=== PATIENT | male | born 1955 | race Caucasian/White ===

== ENCOUNTER 2020-12-28 09:11 | Outpatient (CLI) | payer OTHER | END 2020-12-28 09:12 | disposition home or self-care (01) | LOC: LAB 09:11 | PROVIDERS: ATTEND Physician Assistant | DX: C25.9 Malignant neoplasm of pancreas, unspecified (principal) | CPT/HCPCS: 81599 ==

== ENCOUNTER 2022-12-04 11:15 | Emergency (ER) | payer MEDICARE ==
[2022-12-04] MEDS ORDERED: SODIUM CHLORIDE 0.9% 1,000 ML IV STA (11:33)
[2022-12-04] MEDS ORDERED: METOCLOPRAMIDE 10 MG/2 ML VIAL IVP STA (11:43)
--- NOTE | 2022-12-04 11:44 | ED Physician Documentation ---
PD HPI ABD PAIN - Stated complaint Stated Complaint: DIZZINESS,VOMITING - Chief complaint Chief Complaint: Abd Pain - History obtained from History obtained from: Patient - Additional information Additional information: 67-year-old gentleman presents accompanied by his for evaluation of nausea and vomiting. He has a history of HIV on [place] with undetectable viral load and per him normal CD4 counts. 2 years ago was diagnosed with pancreatic cancer and he was never a surgical candidate. He has been on chemo pretty much consistently since that time and is on his third regimen of chemo. He does not know what agents, but he has been on the current regimen every other week for about 7 or 8 months. During that time he never really had problems with significant nausea or vomiting. The only thing different recently as he had his biliary stents replaced about 9 days ago and it was a larger stent made of a different material than his prior stents. He had his last chemo on Thursday, 4 da ys ago and the next day he developed nausea and vomiting. It was not so bad yesterday but worse again today. It is not associated with significant abdominal pain, "just pain from retching." Nor is it associated with fevers. He tried Zofran at home without relief. PD PAST MEDICAL HISTORY - Past Medical History Cardiovascular: None Respiratory: None Neuro: None Endocrine/Autoimmune: None GI: Other : None Psych: None Musculoskeletal: None Derm: None - Present Medications Home Medications: Ambulatory Orders Medication Instructions Recorded Confirmed Diphenoxylate/Atropine [Lomotil] 1 tab PO DAILY PRN 12/25/20 05/01/22 Levothyroxine Sodium [Synthroid] 1 tab PO DAILY 12/25/20 05/01/22 Lidocaine/Hydrocortisone AC 1 applic TOP PRN PRN 12/25/20 05/01/22 [Lidocaine-Hc 2-2% Cream Kit] Naloxone HCl Nasal [Narcan] 1 spray IN ONCE PRN 12/25/20 05/01/22 Ondansetron Odt [Zofran Odt] 2 tab PO DAILY 12/25/20 05/01/22 Tamsulosin HCl [Flomax] 0.4 mg PO DAILY 12/25/20 05/01/22 Zolpidem [Ambien] 1 tab PO DAILY PM PRN 12/25/20 05/01/22 Ascorbic Acid [Vitamin C] 1 tab PO DAILY 05/01/22 05/01/22 Beclomethasone Dipropionate 1 - 2 spray IN Q6HR PRN 05/01/22 05/01/22 [Beconase Aq] Bictegrav/Emtricit/Tenofov Ala 1 tab PO DAILY 05/01/22 05/01/22 [Biktarvy 50-200-25 mg Tablet] DULoxetine [Cymbalta] 1 tab PO DAILY 05/01/22 05/01/22 Diphenoxylate/Atropine [Lomotil] 1 tab PO Q6HR PRN 05/01/22 05/01/22 Ergocalciferol (Vitamin D2) 1 tab PO DAILY 05/01/22 05/01/22 [Vitamin D2] Filgrastim-Sndz [Zarxio] 1 syr SQ DAILY 05/01/22 05/01/22 Hyoscyamine [Levsin] 1 tab SL Q4HR PRN 05/01/22 05/01/22 Levothyroxine Sodium 1 tab PO DAILY 05/01/22 05/01/22 [Levothyroxine] Lidocaine/Prilocain 2.5% Cream 1 applic PRN 05/01/22 [Emla 2.5% Cream] Lipase/Protease/Amylase [Creon Dr 1 - 2 cap PO DAILY 05/01/22 05/01/22 24,000 Unit Capsule] Loperamide [Imodium] 2 cap PO 05/01/22 05/01/22 Methylphenidate [Ritalin] 1 - 3 tab PO BID 05/01/22 05/01/22 Multivitamin 1 tab PO DAILY 05/01/22 05/01/22 Omeprazole Magnesium 1 tab PO DAILY 05/01/22 05/01/22 Opium Tincture 0.6 ml PO TID PRN 05/01/22 05/01/22 Oxycodone HCl [Roxicodone] 5 mg PO Q4HR PRN 05/01/22 05/01/22 Prochlorperazine [Compazine] 2 tab PO Q6HR PRN 05/01/22 05/01/22 traZODone [Desyrel] 1 tab PO QPM 05/01/22 05/01/22 Prochlorperazine Maleate 10 mg PO Q6H PRN #20 tablet 12/04/22 [Compazine] - Allergies Allergies/Adverse Reactions: Allergies Allergy/AdvReac Type Severity Reaction Status Date / Time No Known Drug Allergies Allergy Verified 12/04/22 11:25 - Social History Smoking Status: Former smoker PD ED PE NORMAL - Vitals Vital signs reviewed: Yes - General General: Alert and oriented X 3, No acute distress - Cardiac Cardiac: RRR, No murmur - Respiratory Respiratory: No respiratory distress, Clear bilaterally - Abdomen Abdomen: Normal bowel sounds, Soft, Non tender - Derm Derm: No rash - Neuro Neuro: Alert and oriented X 3, Normal speech Results - Vitals Vitals: Vital Signs - 24 hr 12/04/22 12/04/22 12/04/22 11:20 12:30 13:00 Temperature 36.3 C L 36.5 C Heart Rate 114 H 100 100 Respiratory 22 22 18 Rate Blood Pressure 149/96 H 146/80 H 145/82 H O2 Saturation 99 100 100 12/04/22 12/04/22 13:30 14:00 Temperature 36.5 C Heart Rate 98 99 Respiratory 16 16 Rate Blood Pressure 140/80 H 142/76 H O2 Saturation 94 99 Oxygen O2 Source Room air - Labs Labs: Laboratory Tests 12/04/22 12/04/22 12/04/22 11:45 11:45 12:07 WBC 47.0 H* RBC 3.89 L Hgb 13.2 L Hct 38.1 L MCV 97.9 H MCH 33.9 H MCHC 34.6 RDW 14.1 Plt Count 180 MPV 9.4 Neut # (Auto) Not Reportable Lymph # (Auto) Not Reportable [place] # (Auto) Not Reportable Eos # (Auto) Not Reportable Baso # (Auto) Not Reportable Absolute Nucleated RBC Not Reportable Total Counted 100 Band Neuts % (Manual) 3 Reactive Lymphs % (Man) 1 Abnorm Lymph % (Manual) 0 Nucleated RBC % Not Reportable Neutrophils # (Manual) 44.7 H Lymphocytes # (Manual) 1.4 L Monocytes # (Manual) 0.9 Eosinophils # (Manual) 0.0 Basophils # (Manual) 0.0 Differential Comment MANUAL DIFFERENTIAL PT 12.2 INR 1.1 Sodium 136 Potassium 4.2 Chloride 103 Carbon Dioxide 23 Anion Gap 10.0 BUN 20 Creatinine 1.1 Estimated GFR (MDRD) 67 L Glucose 138 H Calcium 9.2 Total Bilirubin 1.5 H AST 67 H ALT 49 Alkaline Phosphatase 168 H Total Protein 7.3 Albumin 3.9 Globulin 3.4 Albumin/Globulin Ratio 1.1 Lipase 35 PD Medical Decision Making - ED course ED course: 67-year-old gentleman with known metastatic pancreatic cancer undergoing therapy. Records reviewed that were sent from [facility]. He is currently on 5-FU, irinotecan and has not had a change in his therapy in quite some time. Did receive new stents last week. He is afebrile and nontoxic but does look miserable. Work-up here demonstrates a white count of 47,000, it was 6 on the third of this month, but he did take Neulasta yesterday. His bilirubin has risen slightly from 1.7-1.5 and his AST also went up slightly, it was 23 on Thursday. He is dry, his creatinine has gone up from 0.89-1.1, and his BUN from 12 up to 20. I discussed the case by phone with EMMA Valdes at [facility] who recommends a CT to evaluate his stent and blood cultures but not necessarily antibiotics at this juncture. He has had cholangitis in the past. He was feeling achy all over, and was administered 15 mg of Toradol and 0.5 mg of IV Dilaudid. He was feeling much better after the above interventions. CT not showing migration of the stent. He wanted to go home. He remained afebrile. Given the mild lab abnormalities I do think it would be appropriate to trend them and wrote him an outpatient lab requisition, recommended repeat labs be done on Thursday. I did update Georgette, his oncology nurse and they will reach back out to him tomorrow to check on him for 2. Departure - Departure Disposition: Home, Self Care Clinical Impression: Pancreatic cancer metastasized to intra-abdominal lymph node, Chemotherapy induced nausea and vomiting Condition: Stable Record reviewed to determine appropriate education?: Yes Instructions: ED Nausea Vomiting Prescriptions: Prochlorperazine Maleate [Compazine] 10 mg PO Q6H PRN #20 tablet PRN Reason: Nausea / Vomiting Comments: You are seen today for nausea and vomiting in the setting of known metastatic pancreatic cancer with biliary stent in place. As discussed, your white cell count went up to 47,000, it was 6000 on Thursday, but this could be explained by the Neulasta shot you received yesterday. There was a mild elevation in your bilirubin but a CT showing the stent looked okay. He received 2 L of IV fluids and some pain and nausea medicine. I sent a prescription for Compazine to [facility] in [place]. I did discuss the case with Eva and Yocasta at [facility] and they plan to reach out to you tomorrow to see how you are doing. As discussed I also think it would be appropriate to trend your labs in about 2 days and I wrote a lab request for a CBC and a CMP and you should come to the hospital at your convenience on Thursday to have that drawn. I will follow-up on it, but I also will have a copied/faxed to the [facility]. Return sooner if worse, especially if you are develop a fever.
[2022-12-04 11:57] LABS: BASOPHILS % (AUTO) 0.3 %; HCT - HEMATOCRIT 38.1 % (42.0-52.0); HGB - HEMOGLOBIN 13.2 g/dL (14.0-18.0); LYMPHOCYTES % (AUTO) 1.6 %; MEAN CORPUSCULAR HEMOGLOBIN 33.9 pg (27.0-31.0); MEAN CORPUSCULAR HGB CONC 34.6 g/dL (32.0-36.0); MEAN CORPUSCULAR VOLUME 97.9 fL (80.0-94.0); MEAN PLATELET VOLUME 9.4 fL (7.4-11.4); NEUTROPHILS % (AUTO) 91.2 %; PLT - PLATELET COUNT 180 10^3/uL (130-450); RED BLOOD COUNT 3.89 10^6/uL (4.70-6.10); RED CELL DISTRIBUTION WIDTH 14.1 % (12.0-15.0)
[2022-12-04 12:03] LABS: INR 1.1 (0.8-1.2); PT - PROTHROMBIN TIME 12.2 secs (9.9-12.6)
[2022-12-04 12:06] LABS: ABNORMAL LYMPHS % (MANUAL) 0 %
[2022-12-04 12:15] LABS: BAND NEUTROPHILS % (MANUAL) 3 %; LYMPHOCYTES # (MANUAL) 1.4 10^3/uL (1.5-3.5); LYMPHOCYTES % (MANUAL) 2 %; MONOCYTES # (MANUAL) 0.9 10^3/uL (0.0-1.0); NEUTROPHILS # (MANUAL) 44.7 10^3/uL (1.5-6.6); REACTIVE LYMPHS % (MANUAL) 1 %
[2022-12-04 12:16] LABS: DIFFERENTIAL COMMENT MANUAL DIFFERENTIAL
[2022-12-04 12:25] LABS: ALBUMIN 3.9 g/dL (3.2-5.5); ALBUMIN/GLOBULIN RATIO 1.1 (1.0-2.2); BILIRUBIN,TOTAL 1.5 mg/dL (0.2-1.0); CALCIUM 9.2 mg/dL (8.5-10.3); CREATININE 1.1 mg/dL (0.6-1.2); POTASSIUM 4.2 mmol/L (3.5-5.0); TOTAL PROTEIN 7.3 g/dL (6.7-8.2)
[2022-12-04] MEDS ORDERED: KETOROLAC 15 MG/ML VIAL IVP STA (12:34)
[2022-12-04] MEDS ORDERED: HYDROmorphone 0.5 MG/0.5 ML SYRINGE IVP STA (12:38)
[2022-12-04] MEDS ORDERED: LACTATED RINGERS 1,000 ML IV STA (12:41)
--- OUTSIDE RECORDS SUMMARY | 2022-12-04 12:45 | EXTERNAL MEDICAL SUMMARY RPT | Continuity of Care Document ---
Author Name Unknown Address [address] [place] [address] Phone Organization [facility] Address [address] [place] [address] Phone Care Team Providers Care Finishing Operator Name Role Phone Unavailable Unavailable Unavailable Sandeep Dobson Unavailable Unavailable Medications date description facility 2022-10-07 00:00 Ondansetron [facility] 2022-10-07 00:00 Pegfilgrastim [facility] 2022-10-07 00:00 Morphine [facility]abs test date author facility value unit interpretation Result panel 1 (unknown) (no date) (unknown) (unknown) (no value) (units unknown) (unknown) (unknown) (no date) (unknown) (unknown) 10/07/22 (units unknown) (unknown) (unknown) (no date) (unknown) (unknown) 66 yo male pre sents today for hemorrhoids bleeding. (units unknown) (unknown) (unknown) (no date) (unknown) (unknown) Age/Sex: 66 / M Date of Service: (units unknown) (unknown) (unknown) (no date) (unknown) (unknown) Allergies (units unknown) (unknown) (unknown) (no date) (unknown) (unknown) [place] [address] (units unknown) (unknown) (unknown) (no date) (unknown) (unknown) Anesthesia (units unknown) (unknown) (unknown) (no date) (unknown) (unknown) Attending Dr: Sandeep Dobson D.O. (units unknown) (unknown) (unknown) (no date) (unknown) (unknown) Broken femur (-1965) (units unknown) (unknown) (unknown) (no date) (unknown) (unknown) Brother Deceas ed Murder (units unknown) (unknown) (unknown) (no date) (unknown) (unknown) : Acct:[id number] (units unknown) (unknown) (unknown) (no date) (unknown) (unknown) Dept at . (units unknown) (unknown) (unknown) (no date) (unknown) (unknown) Documented By: Sandeep Dobson D.O. 10/07/22 1000 (units unknown) (unknown) (unknown) (no date) (unknown) (unknown) Draft (units unknown) (unknown) (unknown) (no date) (unknown) (unknown) Dyspepsia (units unknown) (unknown) (unknown) (no date) (unknown) (unknown) Family History (units unknown) (unknown) (unknown) (no date) (unknown) (unknown) Family Practic e Office Visit (units unknown) (unknown) (unknown) (no date) (unknown) (unknown) Father Can er (units unknown) (unknown) (unknown) (no date) (unknown) (unknown) [facility] (units unknown) (unknown) (unknown) (no date) (unknown) (unknown) HIV antibody p ositive (-1991) (units unknown) (unknown) (unknown) (no date) (unknown) (unknown) HTN (hypertension) ( units unknown) (unknown) (unknown) (no date) (unknown) (unknown) Hyperlipidemia (unit s unknown) (unknown) (unknown) (no date) (unknown) (unknown) Hypothyroid (-1998) (units unknown) (unknown) (unknown) (no date) (unknown) (unknown) Intake Note: (units unknown) (unknown) (unknown) (no date) (unknown) (unknown) Intake perform ed by: Tonya Agudelo (units unknown) (unknown) (unknown) (no date) (unknown) (unknown) Intake (units unknown) (unknown) (unknown) (no date) (unknown) (unknown) Intake- Clincial Sta ff (units unknown) (unknown) (unknown) (no date) (unknown) (unknown) Loc: [facility] (units unknown) (unknown) (unknown) (no date) (unknown) (unknown) [id number] (units unknown) (unknown) (unknown) (no date) (unknown) (unknown) Mass of pancreas (un its unknown) (unknown) (unknown) (no date) (unknown) (unknown) Medical Histor y (units unknown) (unknown) (unknown) (no date) (unknown) (unknown) Mother d Alzheimer's disease (units unknown) (unknown) (unknown) (no date) (unknown) (unknown) No Known Drug Allergies Allergy (Verified 03/21/22 08:07) (units unknown) (unknown) (unknown) (no date) (unknown) (unknown) PFSH (units unknown) (unknown) (unknown) (no date) (unknown) (unknown) Pancreatic cancer (u nits unknown) (unknown) (unknown) (no date) (unknown) (unknown) Patient: Horacio Arceo MR#: (units unknown) (unknown) (unknown) (no date) (unknown) (unknown) Prediabetes (units unknown) (unknown) (unknown) (no date) (unknown) (unknown) Reason For Visit (un its unknown) (unknown) (unknown) (no date) (unknown) (unknown) Signed By: (units unknown) (unknown) (unknown) (no date) (unknown) (unknown) Smoking Status : Former smoker (units unknown) (unknown) (unknown) (no date) (unknown) (unknown) Social History (unit s unknown) (unknown) (unknown) (no date) (unknown) (unknown) Surgical Histo ry (units unknown) (unknown) (unknown) (no date) (unknown) (unknown) This note may have been all or partially generated using voice recognition (units unknown) (unknown) (unknown) (no date) (unknown) (unknown) Tobacco + Subs tance Use (units unknown) (unknown) (unknown) (no date) (unknown) (unknown) Tobacco Status (unit s unknown) (unknown) (unknown) (no date) (unknown) (unknown) Tobacco: How m any years used: 50 (units unknown) (unknown) (unknown) (no date) (unknown) (unknown) Vision disorder (uni ts unknown) (unknown) (unknown) (no date) (unknown) (unknown) Visit Reasons: Hemorrhoids bleeding (units unknown) (unknown) (unknown) (no date) (unknown) (unknown) Well adult exam (uni ts unknown) (unknown) (unknown) (no date) (unknown) (unknown) alcohol intake : current (units unknown) (unknown) (unknown) (no date) (unknown) (unknown) have occurred. If there are any questions, please contact the Medical Records (units unknown) (unknown) (unknown) (no date) (unknown) (unknown) household memb ers: spouse (units unknown) (unknown) (unknown) (no date) (unknown) (unknown) marital status : (units unknown) (unknown) (unknown) (no date) (unknown) (unknown) may occur. Occ asional wrong-word or 'sound-alike' substitutions may have (units unknown) (unknown) (unknown) (no date) (unknown) (unknown) occupational s tatus: previously employed (units unknown) (unknown) (unknown) (no date) (unknown) (unknown) occurred due t o the inherent limitations of voice recognition software. Please (units unknown) (unknown) (unknown) (no date) (unknown) (unknown) read the note carefully and recognize, using context, where these substitutions (units unknown) (unknown) (unknown) (no date) (unknown) (unknown) software. Alth ough every effort is made to edit content, sales receptionist errors (units unknown) (unknown) (unknown) (no date) (unknown) (unknown) substance use type: does not use (units unknown) (unknown) Result panel 2 (unknown) (no date) (unknown) (unknown) (no value) (units unknown) (unknown) (unknown) (no date) (unknown) (unknown) (Biktarvy) 1 t ab PO DAILY 05/23/19 [History Confirmed 10/07/22] (units unknown) (unknown) (unknown) (no date) (unknown) (unknown) .Route .COMPLE X 10/07/21 [History Confirmed 03/21/22] (units unknown) (unknown) (unknown) (no date) (unknown) (unknown) 10/07/22 (units unknown) (unknown) (unknown) (no date) (unknown) (unknown) 10/07/22] (units unknown) (unknown) (unknown) (no date) (unknown) (unknown) 10:29 (units unknown) (unknown) (unknown) (no date) (unknown) (unknown) 66 yo male pre sents today for hemorrhoids bleeding intermediately x 3/4 weeks. (units unknown) (unknown) (unknown) (no date) (unknown) (unknown) Age/Sex: 66 / M Date of Service: (units unknown) (unknown) (unknown) (no date) (unknown) (unknown) Allergies (units unknown) (unknown) (unknown) (no date) (unknown) (unknown) [place] [address] (units unknown) (unknown) (unknown) (no date) (unknown) (unknown) Anesthesia (units unknown) (unknown) (unknown) (no date) (unknown) (unknown) Attending Dr: Sandeep Dobson D.O. (units unknown) (unknown) (unknown) (no date) (unknown) (unknown) BMI 25.6 (units unknown) (unknown) (unknown) (no date) (unknown) (unknown) BP 128/78 (units unknown) (unknown) (unknown) (no date) (unknown) (unknown) Blood Pressure Location Lt brachial (units unknown) (unknown) (unknown) (no date) (unknown) (unknown) Broken femur (-1965) (units unknown) (unknown) (unknown) (no date) (unknown) (unknown) Brother Deces[place] ed Murder (units unknown) (unknown) (unknown) (no date) (unknown) (unknown) Confirmed 10/07/22] (units unknown) (unknown) (unknown) (no date) (unknown) (unknown) DAILY 08/30/21 [History Confirmed 10/07/22] (units unknown) (unknown) (unknown) (no date) (unknown) (unknown) : 8 Acct:[id number] (units unknown) (unknown) (unknown) (no date) (unknown) (unknown) Dept at . (units unknown) (unknown) (unknown) (no date) (unknown) (unknown) Documented By: Sandeep Dobson D.O. 10/07/22 1000 (units unknown) (unknown) (unknown) (no date) (unknown) (unknown) Draft (units unknown) (unknown) (unknown) (no date) (unknown) (unknown) Dyspepsia (units unknown) (unknown) (unknown) (no date) (unknown) (unknown) Family History (units unknown) (unknown) (unknown) (no date) (unknown) (unknown) Family Practic e Office Visit (units unknown) (unknown) (unknown) (no date) (unknown) (unknown) Father Can er (units unknown) (unknown) (unknown) (no date) (unknown) (unknown) [facility] (units unknown) (unknown) (unknown) (no date) (unknown) (unknown) HIV antibody p ositive (-1991) (units unknown) (unknown) (unknown) (no date) (unknown) (unknown) HTN (hypertension) ( units unknown) (unknown) (unknown) (no date) (unknown) (unknown) Height 5 ft 4 in (un its unknown) (unknown) (unknown) (no date) (unknown) (unknown) Hyperlipidemia (unit s unknown) (unknown) (unknown) (no date) (unknown) (unknown) Hypothyroid (-1998) (units unknown) (unknown) (unknown) (no date) (unknown) (unknown) Intake Note: (units unknown) (unknown) (unknown) (no date) (unknown) (unknown) Intake perform ed by: Tonya Agudelo (units unknown) (unknown) (unknown) (no date) (unknown) (unknown) Intake (units unknown) (unknown) (unknown) (no date) (unknown) (unknown) Intake- Clincial Sta ff (units unknown) (unknown) (unknown) (no date) (unknown) (unknown) Loc: [facility] (units unknown) (unknown) (unknown) (no date) (unknown) (unknown) [id number] (units unknown) (unknown) (unknown) (no date) (unknown) (unknown) Mass of pancreas (un its unknown) (unknown) (unknown) (no date) (unknown) (unknown) Medical Histor y (units unknown) (unknown) (unknown) (no date) (unknown) (unknown) Medications (units unknown) (unknown) (unknown) (no date) (unknown) (unknown) Mother d Alzheimer's disease (units unknown) (unknown) (unknown) (no date) (unknown) (unknown) No Known Drug Allergies Allergy (Verified 10/07/22 10:24) (units unknown) (unknown) (unknown) (no date) (unknown) (unknown) Oxygen Deliver y Method room air (units unknown) (unknown) (unknown) (no date) (unknown) (unknown) PFSH (units unknown) (unknown) (unknown) (no date) (unknown) (unknown) Pancreatic cancer (u nits unknown) (unknown) (unknown) (no date) (unknown) (unknown) Patient: Horacio Arceo MR#: (units unknown) (unknown) (unknown) (no date) (unknown) (unknown) Position Sitting (un its unknown) (unknown) (unknown) (no date) (unknown) (unknown) Prediabetes (units unknown) (unknown) (unknown) (no date) (unknown) (unknown) Pt would like to know if it is his cancer or actual hemorrhoids, colonoscopy (units unknown) (unknown) (unknown) (no date) (unknown) (unknown) Pulse 78 (units unknown) (unknown) (unknown) (no date) (unknown) (unknown) Pulse Oximetry (%) 9 8 (units unknown) (unknown) (unknown) (no date) (unknown) (unknown) Pulse Source Monitor (units unknown) (unknown) (unknown) (no date) (unknown) (unknown) Reason For Visit (un its unknown) (unknown) (unknown) (no date) (unknown) (unknown) Rx Instruction s .Route .COMPLEX 10/07/21 [History Confirmed 10/07/22] (units unknown) (unknown) (unknown) (no date) (unknown) (unknown) Signed By: (units unknown) (unknown) (unknown) (no date) (unknown) (unknown) Smoking Status : Former smoker (units unknown) (unknown) (unknown) (no date) (unknown) (unknown) Social History (unit s unknown) (unknown) (unknown) (no date) (unknown) (unknown) Surgical Histo ry (units unknown) (unknown) (unknown) (no date) (unknown) (unknown) This note may have been all or partially generated using voice recognition (units unknown) (unknown) (unknown) (no date) (unknown) (unknown) Tobacco + Subs tance Use (units unknown) (unknown) (unknown) (no date) (unknown) (unknown) Tobacco Status (unit s unknown) (unknown) (unknown) (no date) (unknown) (unknown) Tobacco: How m any years used: 50 (units unknown) (unknown) (unknown) (no date) (unknown) (unknown) Vision disorder (uni ts unknown) (unknown) (unknown) (no date) (unknown) (unknown) Visit Reasons: Hemorrhoids bleeding (units unknown) (unknown) (unknown) (no date) (unknown) (unknown) Vitals (units unknown) (unknown) (unknown) (no date) (unknown) (unknown) Weight 149 lb 8 oz ( units unknown) (unknown) (unknown) (no date) (unknown) (unknown) Well adult exam (uni ts unknown) (unknown) (unknown) (no date) (unknown) (unknown) [History Confi rmed 10/07/22] (units unknown) (unknown) (unknown) (no date) (unknown) (unknown) alcohol intake : current (units unknown) (unknown) (unknown) (no date) (unknown) (unknown) bictegravir 50 mg-emtricitabine 200 mg-tenofovir alafenam 25 mg tablet (units unknown) (unknown) (unknown) (no date) (unknown) (unknown) cholecalcifero l (vitamin D3) PO 10/07/22 [History Confirmed 10/07/22] (units unknown) (unknown) (unknown) (no date) (unknown) (unknown) dexamethasone 4 mg tablet 4 mg PO 10/07/22 [History Confirmed 10/07/22] (units unknown) (unknown) (unknown) (no date) (unknown) (unknown) have occurred. If there are any questions, please contact the Medical Records (units unknown) (unknown) (unknown) (no date) (unknown) (unknown) household memb ers: spouse (units unknown) (unknown) (unknown) (no date) (unknown) (unknown) hyoscyamine wu lfate 0.125 mg sublingual tablet 0.125 mg sublingual 10/07/22 (units unknown) (unknown) (unknown) (no date) (unknown) (unknown) last year they found hemorrhoids. (units unknown) (unknown) (unknown) (no date) (unknown) (unknown) levothyroxine 137 mcg capsule 137 mcg PO DAILY 05/23/19 [History Confirmed (units unknown) (unknown) (unknown) (no date) (unknown) (unknown) lipase 3,000-p rotease 9,500-amylase 15,000 unit capsule, delayed rel (Creon) See (units unknown) (unknown) (unknown) (no date) (unknown) (unknown) loperamide 2 m g capsule 2 mg PO 10/07/22 [History Confirmed 10/07/22] (units unknown) (unknown) (unknown) (no date) (unknown) (unknown) marital status : (units unknown) (unknown) (unknown) (no date) (unknown) (unknown) may occur. Occ asional wrong-word or 'sound-alike' substitutions may have (units unknown) (unknown) (unknown) (no date) (unknown) (unknown) methylphenidat e HCl 5 mg tablet 5 mg PO DAILY 08/30/21 [History Confirmed (units unknown) (unknown) (unknown) (no date) (unknown) (unknown) morphine 15 mg immediate release tablet 15 mg PO 10/07/22 [History Confirmed (units unknown) (unknown) (unknown) (no date) (unknown) (unknown) multivitamin combination no.56 PO 10/07/22 [History Confirmed 10/07/22] (units unknown) (unknown) (unknown) (no date) (unknown) (unknown) occupational s tatus: previously employed (units unknown) (unknown) (unknown) (no date) (unknown) (unknown) occurred due t o the inherent limitations of voice recognition software. Please (units unknown) (unknown) (unknown) (no date) (unknown) (unknown) omeprazole 20 mg capsule,delayed release 20 mg PO DAILY 05/23/19 [History (units unknown) (unknown) (unknown) (no date) (unknown) (unknown) ondansetron HC l 8 mg tablet 8 mg PO 10/07/22 [History Confirmed 10/07/22] (units unknown) (unknown) (unknown) (no date) (unknown) (unknown) opium tincture 10 mg/mL (morphine) oral syringe (FOR ORAL USE ONLY) 10 mg PO (units unknown) (unknown) (unknown) (no date) (unknown) (unknown) paclitaxel protein-bound 100 mg intravenous suspension See Rx Instructions (units unknown) (unknown) (unknown) (no date) (unknown) (unknown) pegfilgrastim 6 mg/0.6 mL subcutaneous syringe (Neulasta) 6 mg SUBCUT 10/07/22 (units unknown) (unknown) (unknown) (no date) (unknown) (unknown) read the note carefully and recognize, using context, where these substitutions (units unknown) (unknown) (unknown) (no date) (unknown) (unknown) software. Alth ough every effort is made to edit content, sales receptionist errors (units unknown) (unknown) (unknown) (no date) (unknown) (unknown) substance use type: does not use (units unknown) (unknown) (unknown) (no date) (unknown) (unknown) tamsulosin 0.4 mg capsule 0.4 mg PO DAILY 08/30/21 [History Confirmed 10/07/22] (units unknown) (unknown) (unknown) (no date) (unknown) (unknown) vitamin A-vit C-vit E-zinc-Cu [Vision-Dexter Preserve] PO 10/07/22 [History (units unknown) (unknown) (unknown) (no date) (unknown) (unknown) zolpidem 5 mg tablet 5 mg PO BEDTIME PRN sleep #30 tabs 11/14/20 [Rx Confirmed (units unknown) (unknown) Result panel 3 (unknown) (no date) (unknown) (unknown) (no value) (units unknown) (unknown) (unknown) (no date) (unknown) (unknown) (1) Internal hemorrhoids: (units unknown) (unknown) (unknown) (no date) (unknown) (unknown) (Biktarvy) 1 t ab PO DAILY 05/23/19 [History Confirmed 10/07/22] (units unknown) (unknown) (unknown) (no date) (unknown) (unknown) .Route .COMPLE X 10/07/21 [History Confirmed 03/21/22] (units unknown) (unknown) (unknown) (no date) (unknown) (unknown) 10/07/22 1120 (units unknown) (unknown) (unknown) (no date) (unknown) (unknown) 10/07/22 (units unknown) (unknown) (unknown) (no date) (unknown) (unknown) 10/07/22] (units unknown) (unknown) (unknown) (no date) (unknown) (unknown) 10:29 (units unknown) (unknown) (unknown) (no date) (unknown) (unknown) 66 yo male pre sents today for hemorrhoids bleeding intermediately x 3/4 weeks. (units unknown) (unknown) (unknown) (no date) (unknown) (unknown) 66-year-old ma le with a history of pancreatic cancer currently with treatment (units unknown) (unknown) (unknown) (no date) (unknown) (unknown) Abdomen-soft nontender, no HSM, no palpable masses rebound or guarding (units unknown) (unknown) (unknown) (no date) (unknown) (unknown) Age/Sex: 66 / M Date of Service: (units unknown) (unknown) (unknown) (no date) (unknown) (unknown) Allergies (units unknown) (unknown) (unknown) (no date) (unknown) (unknown) [place] [address] (units unknown) (unknown) (unknown) (no date) (unknown) (unknown) Anesthesia (units unknown) (unknown) (unknown) (no date) (unknown) (unknown) Assessment + Plan (u nits unknown) (unknown) (unknown) (no date) (unknown) (unknown) Assessment and Plan: (units unknown) (unknown) (unknown) (no date) (unknown) (unknown) Attending Dr: Sandeep Dobson D.O. (units unknown) (unknown) (unknown) (no date) (unknown) (unknown) BMI 25.6 (units unknown) (unknown) (unknown) (no date) (unknown) (unknown) BP 128/78 (units unknown) (unknown) (unknown) (no date) (unknown) (unknown) Blood Pressure Location Lt brachial (units unknown) (unknown) (unknown) (no date) (unknown) (unknown) Broken femur (-1965) (units unknown) (unknown) (unknown) (no date) (unknown) (unknown) Brother Deceas ed Murder (units unknown) (unknown) (unknown) (no date) (unknown) (unknown) Chief Complaint (uni ts unknown) (unknown) (unknown) (no date) (unknown) (unknown) Chief Complain t: Follow-up internal hemorrhoids (units unknown) (unknown) (unknown) (no date) (unknown) (unknown) Confirmed 10/07/22] (units unknown) (unknown) (unknown) (no date) (unknown) (unknown) DAILY 08/30/21 [History Confirmed 10/07/22] (units unknown) (unknown) (unknown) (no date) (unknown) (unknown) : 8 Acct:[id number] (units unknown) (unknown) (unknown) (no date) (unknown) (unknown) Dept at . (units unknown) (unknown) (unknown) (no date) (unknown) (unknown) Details: (units unknown) (unknown) (unknown) (no date) (unknown) (unknown) Documented By: Sandeep Dobson D.O. 10/07/22 1000 (units unknown) (unknown) (unknown) (no date) (unknown) (unknown) Dyspepsia (units unknown) (unknown) (unknown) (no date) (unknown) (unknown) Exam Narrative (unit s unknown) (unknown) (unknown) (no date) (unknown) (unknown) Exam Narrative: (uni ts unknown) (unknown) (unknown) (no date) (unknown) (unknown) Exam (units unknown) (unknown) (unknown) (no date) (unknown) (unknown) Family History (units unknown) (unknown) (unknown) (no date) (unknown) (unknown) Family Practic e Office Visit (units unknown) (unknown) (unknown) (no date) (unknown) (unknown) Father Canc er (units unknown) (unknown) (unknown) (no date) (unknown) (unknown) [facility] (units unknown) (unknown) (unknown) (no date) (unknown) (unknown) General physic al examination, physical examination (units unknown) (unknown) (unknown) (no date) (unknown) (unknown) HIV antibody p ositive (-1991) (units unknown) (unknown) (unknown) (no date) (unknown) (unknown) HPI (units unknown) (unknown) (unknown) (no date) (unknown) (unknown) HTN (hypertension) ( units unknown) (unknown) (unknown) (no date) (unknown) (unknown) Head-normoceph alic atraumatic, , (units unknown) (unknown) (unknown) (no date) (unknown) (unknown) Height 5 ft 4 in (un its unknown) (unknown) (unknown) (no date) (unknown) (unknown) Hyperlipidemia (unit s unknown) (unknown) (unknown) (no date) (unknown) (unknown) Hypothyroid () (units unknown) (unknown) (unknown) (no date) (unknown) (unknown) Intake Note: (units unknown) (unknown) (unknown) (no date) (unknown) (unknown) Intake perform ed by: Tonya Agudelo (units unknown) (unknown) (unknown) (no date) (unknown) (unknown) Intake (units unknown) (unknown) (unknown) (no date) (unknown) (unknown) Intake- Clincial Sta ff (units unknown) (unknown) (unknown) (no date) (unknown) (unknown) Internal hemorrhoids (units unknown) (unknown) (unknown) (no date) (unknown) (unknown) Loc: [facility] (units unknown) (unknown) (unknown) (no date) (unknown) (unknown) [id number] (units unknown) (unknown) (unknown) (no date) (unknown) (unknown) Mass of pancreas (un its unknown) (unknown) (unknown) (no date) (unknown) (unknown) Medical Histor y (units unknown) (unknown) (unknown) (no date) (unknown) (unknown) Medications (units unknown) (unknown) (unknown) (no date) (unknown) (unknown) Middle-aged ap pearing adult with above complaints, contributed to history and (units unknown) (unknown) (unknown) (no date) (unknown) (unknown) Mother d Alzheimer's disease (units unknown) (unknown) (unknown) (no date) (unknown) (unknown) Neck-supple no thyromegaly, JVD or lymphadenopathy (units unknown) (unknown) (unknown) (no date) (unknown) (unknown) No Known Drug Allergies Allergy (Verified 10/07/22 10:24) (units unknown) (unknown) (unknown) (no date) (unknown) (unknown) Orders: (units unknown) (unknown) (unknown) (no date) (unknown) (unknown) Oxygen Deliver y Method room air (units unknown) (unknown) (unknown) (no date) (unknown) (unknown) PFSH (units unknown) (unknown) (unknown) (no date) (unknown) (unknown) Pancreatic cancer (u nits unknown) (unknown) (unknown) (no date) (unknown) (unknown) Patient: Horacio Arceo MR#: (units unknown) (unknown) (unknown) (no date) (unknown) (unknown) Position Sitting (un its unknown) (unknown) (unknown) (no date) (unknown) (unknown) Prediabetes (units unknown) (unknown) (unknown) (no date) (unknown) (unknown) Pt would like to know if it is his cancer or actual hemorrhoids, colonoscopy (units unknown) (unknown) (unknown) (no date) (unknown) (unknown) Pulse 78 (units unknown) (unknown) (unknown) (no date) (unknown) (unknown) Pulse Oximetry (%) 9 8 (units unknown) (unknown) (unknown) (no date) (unknown) (unknown) Pulse Source Monitor (units unknown) (unknown) (unknown) (no date) (unknown) (unknown) ROS Narrative (units unknown) (unknown) (unknown) (no date) (unknown) (unknown) ROS Narrative: (unit s unknown) (unknown) (unknown) (no date) (unknown) (unknown) ROS per H[facility] [place] notes no vomiting or nausea has had variable bleeding (units unknown) (unknown) (unknown) (no date) (unknown) (unknown) ROS (units unknown) (unknown) (unknown) (no date) (unknown) (unknown) Reason For Visit (un its unknown) (unknown) (unknown) (no date) (unknown) (unknown) Referral Gastroenterology K64.8 - Other hemorrhoids (units unknown) (unknown) (unknown) (no date) (unknown) (unknown) Referrals (units unknown) (unknown) (unknown) (no date) (unknown) (unknown) Rx Instruction s .Route .COMPLEX 10/07/21 [History Confirmed 10/07/22] (units unknown) (unknown) (unknown) (no date) (unknown) (unknown) Signed By: <Electronically signed by Sandeep Dobson D.O.> (units unknown) (unknown) (unknown) (no date) (unknown) (unknown) Signed (units unknown) (unknown) (unknown) (no date) (unknown) (unknown) Smoking Status : Former smoker (units unknown) (unknown) (unknown) (no date) (unknown) (unknown) Social History (unit s unknown) (unknown) (unknown) (no date) (unknown) (unknown) Status: Acute (units unknown) (unknown) (unknown) (no date) (unknown) (unknown) Surgical Histo ry (units unknown) (unknown) (unknown) (no date) (unknown) (unknown) The patient farah s had intermittent bleeding from his internal hemorrhoids well (units unknown) (unknown) (unknown) (no date) (unknown) (unknown) This note may have been all or partially generated using voice recognition (units unknown) (unknown) (unknown) (no date) (unknown) (unknown) Tobacco + Subs tance Use (units unknown) (unknown) (unknown) (no date) (unknown) (unknown) Tobacco Status (unit s unknown) (unknown) (unknown) (no date) (unknown) (unknown) Tobacco: How m any years used: 50 (units unknown) (unknown) (unknown) (no date) (unknown) (unknown) Vision disorder (uni ts unknown) (unknown) (unknown) (no date) (unknown) (unknown) Visit Reasons: Hemorrhoids bleeding (units unknown) (unknown) (unknown) (no date) (unknown) (unknown) Vital signs ar e reported, charted and reviewed with patient (units unknown) (unknown) (unknown) (no date) (unknown) (unknown) Vitals (units unknown) (unknown) (unknown) (no date) (unknown) (unknown) Weight 149 lb 8 oz ( units unknown) (unknown) (unknown) (no date) (unknown) (unknown) Well adult exam (uni ts unknown) (unknown) (unknown) (no date) (unknown) (unknown) [History Confi rmed 10/07/22] (units unknown) (unknown) (unknown) (no date) (unknown) (unknown) alcohol intake : current (units unknown) (unknown) (unknown) (no date) (unknown) (unknown) [facility] your patient would like to follow back up with his (units unknown) (unknown) (unknown) (no date) (unknown) (unknown) bictegravir 50 mg-emtricitabine 200 mg-tenofovir alafenam 25 mg tablet (units unknown) (unknown) (unknown) (no date) (unknown) (unknown) bleeding from his internal hemorrhoids documented on colonoscopy 1 year ago (units unknown) (unknown) (unknown) (no date) (unknown) (unknown) bowel habits a nd impairment issues have worsened. No change in diet no travel (units unknown) (unknown) (unknown) (no date) (unknown) (unknown) cholecalcifero l (vitamin D3) PO 10/07/22 [History Confirmed 10/07/22] (units unknown) (unknown) (unknown) (no date) (unknown) (unknown) dexamethasone 4 mg tablet 4 mg PO 10/07/22 [History Confirmed 10/07/22] (units unknown) (unknown) (unknown) (no date) (unknown) (unknown) documented on a colonoscopy a year ago but over the past couple of weeks with (units unknown) (unknown) (unknown) (no date) (unknown) (unknown) exam (units unknown) (unknown) (unknown) (no date) (unknown) (unknown) from constipat ion and diarrhea intermittently as side effects notes increasing (units unknown) (unknown) (unknown) (no date) (unknown) (unknown) gastroenterolo gist for further evaluation assessment potential banding (units unknown) (unknown) (unknown) (no date) (unknown) (unknown) has produced w orsening bleeding at times has been worrisome for the patient is (units unknown) (unknown) (unknown) (no date) (unknown) (unknown) have occurred. If there are any questions, please contact the Medical Records (units unknown) (unknown) (unknown) (no date) (unknown) (unknown) history has no t been eating out at restaurants slightly (units unknown) (unknown) (unknown) (no date) (unknown) (unknown) household memb ers: spouse (units unknown) (unknown) (unknown) (no date) (unknown) (unknown) hyoscyamine wu lfate 0.125 mg sublingual tablet 0.125 mg sublingual 10/07/22 (units unknown) (unknown) (unknown) (no date) (unknown) (unknown) increasing constipation and diarrhea with his treatment for pancreatic cancer (units unknown) (unknown) (unknown) (no date) (unknown) (unknown) last year they found hemorrhoids. (units unknown) (unknown) (unknown) (no date) (unknown) (unknown) levothyroxine 137 mcg capsule 137 mcg PO DAILY 05/23/19 [History Confirmed (units unknown) (unknown) (unknown) (no date) (unknown) (unknown) lipase 3,000-p rotease 9,500-amylase 15,000 unit capsule, delayed rel ([place]) See (units unknown) (unknown) (unknown) (no date) (unknown) (unknown) loperamide 2 m g capsule 2 mg PO 10/07/22 [History Confirmed 10/07/22] (units unknown) (unknown) (unknown) (no date) (unknown) (unknown) marital status : (units unknown) (unknown) (unknown) (no date) (unknown) (unknown) may occur. Occ asional wrong-word or 'sound-alike' substitutions may have (units unknown) (unknown) (unknown) (no date) (unknown) (unknown) methylphenidat e HCl 5 mg tablet 5 mg PO DAILY 08/30/21 [History Confirmed (units unknown) (unknown) (unknown) (no date) (unknown) (unknown) morphine 15 mg immediate release tablet 15 mg PO 10/07/22 [History Confirmed (units unknown) (unknown) (unknown) (no date) (unknown) (unknown) multivitamin combination no.56 PO 10/07/22 [History Confirmed 10/07/22] (units unknown) (unknown) (unknown) (no date) (unknown) (unknown) not used any [id number] products such as preparation H. No recent (units unknown) (unknown) (unknown) (no date) (unknown) (unknown) occupational s tatus: previously employed (units unknown) (unknown) (unknown) (no date) (unknown) (unknown) occurred due t o the inherent limitations of voice recognition software. Please (units unknown) (unknown) (unknown) (no date) (unknown) (unknown) omeprazole 20 mg capsule,delayed release 20 mg PO DAILY 05/23/19 [History (units unknown) (unknown) (unknown) (no date) (unknown) (unknown) ondansetron HC l 8 mg tablet 8 mg PO 10/07/22 [History Confirmed 10/07/22] (units unknown) (unknown) (unknown) (no date) (unknown) (unknown) opium tincture 10 mg/mL (morphine) oral syringe (FOR ORAL USE ONLY) 10 mg PO (units unknown) (unknown) (unknown) (no date) (unknown) (unknown) paclitaxel protein-bound 100 mg intravenous suspension See Rx Instructions (units unknown) (unknown) (unknown) (no date) (unknown) (unknown) pegfilgrastim 6 mg/0.6 mL subcutaneous syringe (Neulasta) 6 mg SUBCUT 10/07/22 (units unknown) (unknown) (unknown) (no date) (unknown) (unknown) presents with out any nausea vomiting diarrhea or abdominal pain recently has (units unknown) (unknown) (unknown) (no date) (unknown) (unknown) procedures but has noted recently that with his treatment for his cancer his (units unknown) (unknown) (unknown) (no date) (unknown) (unknown) read the note carefully and recognize, using context, where these substitutions (units unknown) (unknown) (unknown) (no date) (unknown) (unknown) rectally over the past couple of weeks a can go a day or 2 without bleeding (units unknown) (unknown) (unknown) (no date) (unknown) (unknown) software. Alth ough every effort is made to edit content, sales receptionist errors (units unknown) (unknown) (unknown) (no date) (unknown) (unknown) substance use type: does not use (units unknown) (unknown) (unknown) (no date) (unknown) (unknown) tamsulosin 0.4 mg capsule 0.4 mg PO DAILY 08/30/21 [History Confirmed 10/07/22] (units unknown) (unknown) (unknown) (no date) (unknown) (unknown) vitamin A-vit C-vit E-zinc-Cu [Vision-Dexter Preserve] PO 10/07/22 [History (units unknown) (unknown) (unknown) (no date) (unknown) (unknown) zolpidem 5 mg tablet 5 mg PO BEDTIME PRN sleep #30 tabs 11/14/20 [Rx Confirmed (units unknown) (unknown) Social History date description facility 2022-10-07 00:00 Ex-smoker (finding) [facility] Vital Signs date measurement value units 2022-10-07 00:00 BMI 25.6 kg/m2 2022-10-07 00:00 BP_diastolic 78 mmHg 2022-10-07 00:00 BP_systolic 128 mmHg 2022-10-07 00:00 heart_rate 78 /min 2022-10-07 00:00 height_metric 162.56 cm 2022-10-07 00:00 height_standard 64 in 2022-10-07 00:00 o2_saturation 98 % 2022-10-07 00:00 weight_metric 67.81 kg 2022-10-07 00:00 weight_standard 149.5 lb
[2022-12-04] MEDS ORDERED: iohexoL-300 100 ML VIAL ONE (13:02)
[2022-12-04] MEDS ORDERED: iohexoL-300 100 ML VIAL IVP ONE (13:24)
--- NOTE | 2022-12-04 14:04 | CT Report ---
PROCEDURE: ABDOMEN/PELVIS W INDICATIONS: IV only, eval biliary stent, known panc ca w mets CONTRAST: 100ml Omnipaque 300 TECHNIQUE: After the administration of intravenous contrast, 5 mm thick sections acquired from the diaphragms to the symphysis. 5 mm thick coronal and sagittal reformats were acquired. For radiation dose reducti on, the following was used: automated exposure control, adjustment of mA and/or kV according to ron ent size. COMPARISON: None FINDINGS: Image quality: Excellent. Lung bases and heart: Unremarkable. Liver: Question subtle posterior segment right lobe liver metastatic lesion measuring approximately 1 .4 cm. Gallbladder and biliary tree: Metallic common duct stent coursing through a pancreatic head mass with mild intrahepatic biliary ductal prominence. Spleen: No splenomegaly. Pancreas: Ill-defined infiltrative pancreatic head mass with associated infiltrative celiac adenopath y encasing the celiac artery and extending around the medial portion of the left adrenal and abutting the inferior vena cava. Adrenals: No adrenal nodule. Kidneys and ureters: No hydronephrosis. There is a posterior middle pole exophytic medially directed left renal cyst measuring 3.4 cm that has a Hounsfield measurement of 56.4. Consider hemorrhagic cyst versus solid lesion. Bowel and peritoneum: No bowel distension. No pathologic free fluid. Sigmoid diverticulosis. There is diffuse colonic wall thickening throughout suggesting diffuse colitis. Consider possible infectious colitis such as C. difficile. Lymph nodes: No central or retroperitoneal adenopathy. There are peripancreatic lymph nodes which may potentially represent metastatic lesions or may potentially be reactive in nature. Vessels: No infrarenal aortic aneurysm. Infiltrative mass encases the celiac and also the proximal SM A posterior to the origin of the portal vein. There is a suggestion of significant focal narrowing of the SMA by tumor. Reference image 23/3. PELVIS Reproductive organs: Unremarkable. Bladder: No abnormal wall thickening, accounting for underdistension. Pelvic lymph nodes: No pelvic adenopathy by size criteria. Bones: No aggressive osseous abnormality. Other: No significant ventral or inguinal hernia. IMPRESSION: 1. Ill-defined infiltrative pancreatic head mass with associated infiltrative adenopathy encasing the celiac as well as the proximal SMA. 2. The encasement of the SMA results in a possible severe focal stenosis, which potentially may be sy mptomatic. 3. Metallic biliary stent in place with mild biliary prominence. 4. Diffuse colonic wall thickening. Consider infectious colitis such as C. difficile colitis. Ischemi c colitis is less likely. Reviewed by: Felipe Meek MD on 12/04/2022 2:02 PM PDT Approved by: Felipe Meek MD on 12/04/2022 2:02 PM PDT Station ID: [id number]
[2022-12-04 14:10] VITALS: BP 142/76
[2022-12-04] MEDS ORDERED: PROCHLORPERAZINE 10 MG/2 ML VIAL IVP STA (14:18)
--- NOTE | 2022-12-06 16:38 | ED Physician Documentation ---
ED Addendum - Addendum Addendum: 12/06/22 16:38 Labs done today and reviewed and d/w pt by phone. He is feeling better, still w nausea/fatigue, but not vomiting or fevers. BCX x 2 NGTD Improved WBC, improved liver enz.
== END 2022-12-04 14:31 | disposition home or self-care (01) ==
LOC: ED 11:15
DX: R11.2 Nausea with vomiting, unspecified (principal); T45.1X5A Adverse effect of antineoplastic and immunosuppressive drugs, initial encounter; R52 Pain, unspecified; C25.9 Malignant neoplasm of pancreas, unspecified; C77.2 Secondary and unspecified malignant neoplasm of intra-abdominal lymph nodes; Z79.899 Other long term (current) drug therapy; B20 Human immunodeficiency virus [HIV] disease; Z87.891 Personal history of nicotine dependence
CPT/HCPCS: 36415; 74177; 80053; 83690; 85025; 85610; 87040; 96374; 96375; 99284; 99285; J1170; J2765; J7120; Q9967

== ENCOUNTER 2022-12-06 09:46 | Outpatient (CLI) | payer MEDICARE ==
[2022-12-06 10:11] LABS: BASOPHILS % (AUTO) 0.1 %; HGB - HEMOGLOBIN 11.4 g/dL (14.0-18.0)
[2022-12-06 10:17] LABS: EOSINOPHILS % (AUTO) 0.3 %; HCT - HEMATOCRIT 33.6 % (42.0-52.0); LYMPHOCYTES % (AUTO) 3.8 %; MEAN CORPUSCULAR HEMOGLOBIN 33.4 pg (27.0-31.0); MEAN CORPUSCULAR HGB CONC 33.9 g/dL (32.0-36.0); MEAN CORPUSCULAR VOLUME 98.5 fL (80.0-94.0); MEAN PLATELET VOLUME 9.3 fL (7.4-11.4); MONOCYTES % (AUTO) 1.8 %; NEUTROPHILS % (AUTO) 90.2 %; PLT - PLATELET COUNT 144 10^3/uL (130-450); RED BLOOD COUNT 3.41 10^6/uL (4.70-6.10)
[2022-12-06 10:19] LABS: ALBUMIN 3.9 g/dL (3.2-5.5); ALBUMIN/GLOBULIN RATIO 1.2 (1.0-2.2); CALCIUM 8.9 mg/dL (8.5-10.3); POTASSIUM 3.9 mmol/L (3.5-5.0); TOTAL PROTEIN 7.1 g/dL (6.7-8.2)
[2022-12-06 10:33] LABS: SLIDE REVIEW? Indicated; WHITE BLOOD COUNT 38.1 x10^3/uL (4.8-10.8)
[2022-12-06 10:34] LABS: ABNORMAL LYMPHS % (MANUAL) 0 %
[2022-12-06 10:49] LABS: BAND NEUTROPHILS % (MANUAL) 4 %; LYMPHOCYTES % (MANUAL) 8 %; MONOCYTES # (MANUAL) 0.4 10^3/uL (0.0-1.0); NEUTROPHILS # (MANUAL) 34.7 10^3/uL (1.5-6.6)
[2022-12-06 10:54] LABS: PLATELET ESTIMATE, MANUAL NORMAL (130-450,000) (NORMAL); PLATELET MORPHOLOGY NORMAL APPEARANCE (NORMAL); RBC MORPHOLOGY (MULTIPLE) 1+ ANISOCYTOSIS (NORMAL); WBC MORPHOLOGY (MULTIPLE) 1+ DOHLE BODIES (NORMAL)
[2022-12-06 10:55] LABS: DIFFERENTIAL COMMENT MANUAL DIFFERENTIAL
== END 2022-12-06 09:47 | disposition home or self-care (01) ==
LOC: LAB 09:46
PROVIDERS: ATTEND Emergency Medicine
DX: C25.9 Malignant neoplasm of pancreas, unspecified (principal)
CPT/HCPCS: 36415; 80053; 85025